=== PATIENT | female | born 1940 | race Two or more races ===

== ENCOUNTER 2017-03-25 19:28 | Emergency (ER) | payer MEDICAID, MEDICARE ==
[~2017-03-25] VITALS: Ht 157.5 cm; Wt 72.7 kg
[2017-03-25 19:31] VITALS: BP 181/71
[2017-03-25] MEDS ORDERED: APAP/CODEINE 300/30MG TABLET PO PRN (21:30)
== END 2017-03-25 22:24 | disposition home or self-care (01) ==
LOC: ED 21:49
DX: G89.29 Other chronic pain (principal); M54.6 Pain in thoracic spine; I10 Essential (primary) hypertension; E11.9 Type 2 diabetes mellitus without complications
CPT/HCPCS: 93005; 99283